=== PATIENT | female | born 1985 | race Caucasian/White ===

== ENCOUNTER 2018-02-20 09:26 | Day surgery (SDC) | payer BC, OTHER, SELFPAY ==
--- NOTE | 2018-02-20 09:26 | DT_ITS ---
This patient was seen during an EMR downtime February 17, 2018 - February 24, 2018. This patient may have a combination of paper and electronic documentation or all paper documentation. All documentation is viewable within the e-chart portion of [employer] for each patient visit.
--- NOTE | 2018-02-20 11:53 | POC_PTH ---
PATIENT: SIMRAN SHAH [place] [facility] [id number] AGE/SX: 33/F ROOM: RE02/20/[address]: Dr. Trinity Leone MD : 1985 BED: DIS: 02/20/2018 SPEC #: [id number] RECD: 02/20/18 12:20 STATUS: DAVID ANGELLA #: [id number] CARMEN: 02/20/18 11:[address]: Trinity Leone DEPT: SURGICAL PATHOLOGY RECD BY: Farhan Cooley ENTERED: 02/21/18 08:54 SP TYPE: PROD CONC OTHR DR: Dr. Donnie Smith MD Tissues: Product of conception, NOS Procedures: Surgery Specimen Level IV HEADER OPERATION: Suction D & C PRE-OP DIAGNOSIS: Missed TISSUE SUBMITTED: Products of conception MICROSCOPIC DIAGNOSIS Products of conception: Macerated male fetus. Weight ? 19.9 gm [place] to rump ? 9 cm [place] to heel ? 14 cm Autolysis of internal organs. Placenta: Placental disc ? 18.2 gm, immature placenta with focal calcifications. Membranes ? acute chorioamnionitis. Umbilical cord - three blood vessels. TEOFILO:lonnie 02/21/18 MICROSCOPIC DESCRIPTION Slides are reviewed. GROSS DESCRIPTION Received in fixative is one container labeled with the patient's name and designated products of conception. The specimen consists of a male macerated fetus and immature placenta. The fetus is received in two pieces with head from rest of the baby. The fetus measures nwnzo-zz-vrne 9 cm and vjcdc-xx-roqe 14 cm and weighs 14 gm. The placenta measures 5 x 5 x 1 cm and weighs 18.2 gm. The centrally attached umbilical cord measures 6 cm in length and 0.2 cm in diameter. Station Engineer Chief sections are submitted in four cassettes as follows: 1 ? tissue, thoracic and abdominal organs, 2-4 ? placenta (3 contain membranes and umbilical cord). Umbilical cord will be serially sectioned at the time of embedding. / TEOFILO:lonnie 02/20/18 TC:5 CPT: 59142 x2
[2018-02-23 12:38] LABS: Hematocrit 39.1 % (37-47); Hemoglobin 13.4 g/dl (12.0-15.0); Mean Corp Hgb Conc 34.3 g/gl (32-36); Mean Corpuscular Hgb 30.4 pg (27.0-32.0); Mean Corpuscular Volume 88.7 fL (81-99); Platelet Count 274 K/mm3 (150-450); RBC Distribution Width CV 12.7 % (11.6-14.6); RBC Distribution Width SD 40.3 fl (35.1-43.9); Red Blood Count 4.41 M/mm3 (4.2-5.4); White Blood Count 6.8 K/mm3 (4.4-11.0)
[2018-02-23 12:39] LABS: Mean Platelet Vol. 9.8 fl (6.2-12.0); Scan Indicated on CBC? Y/N NO
== END 2018-02-20 13:15 | disposition home or self-care (01) ==
LOC: SDC 09:30 → AC 09:31
PROVIDERS: Family Provider Family Medicine; PCP Family Medicine; Visit Provider Obstetrics & Gynecology
PROC: (CPT 59821; principal; 2018-02-20 10:50)
DX: O02.1 Missed abortion (principal); D64.9 Anemia, unspecified; F32.9 Major depressive disorder, single episode, unspecified; G43.909 Migraine, unspecified, not intractable, without status migrainosus; Z87.891 Personal history of nicotine dependence; Z79.899 Other long term (current) drug therapy
CPT/HCPCS: 01965; 59821; 36415; 85027; 86850; 86900; 88305; J7120

== ENCOUNTER 2018-12-31 05:00 | Inpatient (IN) | payer BC, SELFPAY ==
--- NOTE | 2018-12-26 11:41 | PCM.HP.BLA ---
History and Physical Date of Admission: 12/26/18 Adwoa Leary Physician PACKAGE DESIGNER H&P Signed Encounter Date: 12/26/2018 Expand All Collapse All Hide copied text Rj for details Gerardo Sanchez is a 33 year old female who presents for pre op for repeat cs scheduled at [facility] on 12/31/18. Pt denies TOLAC and declines BTo with c/s. Pt denies CP, SOB, dizziness or other concerns today. ? PAST?MEDICAL?HISTORY PAST MEDICAL HISTORY Diagnosis Date ? Anemia ? ? Back pain ? ? Complication of anesthesia ? ? multiple attemps at epidural ? Depression ? ? Migraine ? ? depression ? ? PAST?SURGICAL?HISTORY PAST SURGICAL HISTORY Procedure Laterality Date ? SECTION HX ? 06/06/2011 ? INSERTION OF IUD ? 10/13/2015 ? removed 07/2017 ? TONSILLECTOMY HX ? 1990 ? FAMILY?HISTORY FAMILY HISTORY Problem Relation Age of Onset ? Thyroid Father ? ? hyper ? Cancer Maternal Grandfather ? ? pituitary ? Cancer Maternal Grandmother ? ? lung-smoker ? Emphysema Maternal Grandmother ? ? smoker ? SOCIAL?HISTORY Social History Socioeconomic History Marital status: Spouse name: Jason Number of children: 1 Years of education: 12 Highest education level: Not on file Social Needs Financial resource strain: Not on file Food insecurity - worry: Not on file Food insecurity - inability: Not on file Transportation needs - medical: Not on file Transportation needs - non-medical: Not on file Occupational History Occupation: hvac technician residential Employer: [email or web address] Tobacco Use Smoking status: Former Smoker Years: 3.00 Quit date: 2007 Years since quittin.2 Smokeless tobacco: Never Used Substance and Sexual Activity Alcohol use: No Drug use: No Sexual activity: Yes Partners: Male Other Topics Concerns: Not on file Social History Narrative Not on file ? CURRENT?MEDICATIONS ? Current Outpatient Medications: CITRANATAL 90 DHA, ALGAL OIL, 90 mg iron-1 mg -50 mg-300 mg cmpk TAKE 1 TABLET AND 1 CAPSULE BY MOUTH DAILY cyclobenzaprine (FLEXERIL) 5 mg tablet Take 5 mg by mouth twice daily as needed. hydrOXYzine HCl (ATARAX) 50 mg tablet Take 50 mg by mouth at bedtime as needed. ? No current facility-administered medications for this visit. Allergies As of Date: 12/26/2018 (No Known Allergies) Fully Assessed 12/19/2018 ? ? REVIEW OF SYSTEMS Abdomen: No abdominal pain, nausea, vomiting, diarrhea, or constipation. Expanded ROS: GENERAL: Negative for fever Allergies and current medication updated:Yes ? EXAM: BP 110/64 Wt 221 lb (100.2kg) LMP 04/02/2018 ? GENERAL: pleasant, female in no apparent distress HEENT: Normocephalic, atraumatic, mucus membranes moist and no lesions NECK: Supple and full range of motion DERMATOLOGY: Normal, without lesions, non-icteric and non-hirsute CARDIAC: regular rate and rhythm CHEST: Clear to auscultation Normal inspiratory effort ABDOMEN: soft, non-tender- gravid PELVIC: deferred BIMANUAL: deferred NEURO: alert and oriented x3,exam grossly non-focal EXTREMITIES: normal ? ASSESSMENT AND PLAN: Encounter Diagnosis ? ? ICD-10-CM ? 1. Previous delivery, antepartum O34.219 URINE OB DIP B/O 2. 38 weeks gestation of Z3A.38 URINE OB DIP B/O ? 3. Pt has been counseled on risks/benefits and alternatives of surgery including but not limited to anesthesia, bleeding, infection, injury to pelvic structures including bowel, bladder, ureters and vessels. Pt wishes to proceed with surgery at this time. 4. Repeat cs reviewed along with pre op instructions. ? Adwoa Escobar MD ?
[2018-12-31] VITALS (20 sets, daily range): BP systolic 99–125; BP diastolic 50–77; PULSE 74–98; RESP 12–18; TEMP 36.2–36.8; O2SAT 95–99; BMI 35.5
[2018-12-31] MEDS: Lactated Ringers 1,000 ML 999 ML IV (05:10)
[2018-12-31 05:32] LABS: Absolute Lymphocyte Count 2.28 X10^3/ul (0.83-4.51); Absolute Neutrophil Count 6.9 X10^3/uL (2.0-7.7); Basophil# 0.01 X10^3/uL; Basophil% 0.1 % (0-1); Hematocrit 31.9 % (37-47); Hemoglobin 10.8 g/dl (12.0-15.0); Lymphocyte # 2.28 X10^3/ul (4.0); Lymphocyte % 22.2 % (19-41); Mean Corp Hgb Conc 33.9 g/gl (32-36); Mean Corpuscular Hgb 31.5 pg (27.0-32.0); Mean Platelet Vol. 10.4 fl (6.2-12.0); Monocyte# 0.88 X10^3/uL; Monocyte% 8.6 % (0-10); Neutrophil # 6.94 X10^3/uL (2.7-7.7); Neutrophil % 67.5 % (47-70); Platelet Count 249 K/mm3 (150-450); RBC Distribution Width CV 14.4 % (11.6-14.6); RBC Distribution Width SD 47.2 fl (35.1-43.9); Red Blood Count 3.43 M/mm3 (4.2-5.4); White Blood Count 10.3 K/mm3 (4.4-11.0)
[2018-12-31 05:34] LABS: POSITIVE COUNT NO; POSITIVE DIFFERENTIAL NO; POSITIVE MORPHOLOGY NO
[2018-12-31] MEDS: Lactated Ringers 1,000 ML 150 ML IV (06:38)
[2018-12-31] MEDS: Sodium Citrate/Citric Acid 30 ML UDC PO (06:57)
[2018-12-31] MEDS: Cefazolin 2 GM in 0.9% Normal Saline 100 ML IV (07:27)
[2018-12-31] MEDS: Oxytocin 30 units/NS 500 ml 30 UNITS/500 ML IV.SOLN 167 UNITS IV (07:50)
[2018-12-31] MEDS: Ketorolac 30 MG/ML Syringe IV ×3 (08:08→19:58)
--- NOTE | 2018-12-31 08:21 | OP.PCM_ITS ---
Report of Operation Date of Procedure: 12/31/18 Pre-Operative Diagnosis: term gestation, elective repeat cs Post-Operative Diagnosis: same, live male Surgery/Procedure Performed:: Repeat cs Description of Surgical Findings:: Normal tubes and ovaries corrections unit supervisor: Aida Lewis Type of Anesthesia:: Spinal Specimen's removed: placenta Drains: bills Estimated Blood Loss (mL): 900 Grafts/Implants Used: none - Complications none - Admit VTE Documentation VTE Present on Admission: Yes VTE Mechan Device Prophylaxis: SCD's VTE Pharm Prophylaxis ordered?: Yes Delivery Classification: Scheduled Final CARMEN: 01/07/19 Final CARMEN Source: LMP Gestational age: 39 Weeks and 0 Days Indications for : Repeat Elective Description of Procedure: Operative note: After informed consent was obtained the patient was taken to the operating room she was given spinal anesthesia. He was placed in the supine position. She was then prepped and draped in normal sterile fashion. Once spinal anesthesia was found to be adequate skin incision was made with a scalpel in a Pfannenstiel fashion. It was carried down to the underlying layer of the fascia. Fascia was then incised midline with scapel and extended laterally using curved holland. 2 straight Xiomara's were placed in the superior aspect of the fascial edge and the rectus muscles were dissected off Sharply. Attention was then turned to the inferior aspect where again the fascial edge was grasped with 2 straight [place] clamps tented up and the rectus muscle dissected off sharply. Rectus muscles already seperated- Using blunt force the peritoneum was then entered. Gentle opposing traction placed to extend incision. Metzenbaum scissors were used to create a bladder flap and then taken down digitally. Uterine incision was made in a low transverse fashion with the scalpel and then entered bluntly. Gentle opposing traction was placed to extend the uterine incision. The membranes were ruptured amniotic fluid clear. 's head was then brought to the uterine incision was delivered atraumatically followed by the rest infant's body. At this time delayed cord clamping was performed mouth nose were suctioned. Infant was then handed to the waiting nursery team. The placenta was then removed with gentle traction. The uterus was removed from the intra-abdominal cavity is wrapped in a moist lap. He was cleared of all clots and debris using a moist lap. Ring clamps were placed on the uterine angles. #1 Vicryl suture was used in a running locked fashion for the first layer. Followed by second imbricating layer with #1 Vicryl. At this time then the uterus was placed back into abdominal cavity uterine incision was evaluated and noted to be of good hemostasis. Tubes and ovaries were evaluated they were normal. the uterine incision was again evaluated good hemostasis was appreciated Alisa placed. The peritoneum was grasped with Kellys. Peritoneum was reapproximated using #2 Vicryl suture in a running fashion- alisa placed over rectus muschle. The fascia was then reapproximated using #1 Vicryl in a running fashion. Subcutaneous layer was evaluated and Bovie was used for any small oozing that was noted per #2-0 plain gut suture was then used to reapproximate the subcutaneous layer 4-0 Vicryl on a Ian needle was used to reapproximate the skin in a subcutaneous fashion. Dry sterile dressing was applied. Instrument lap needle count were correct ?2. Anticipated normal postoperative course for this patient. Amniotic Fluid Description: Clear Placenta Disposition: [facility] Drain: Bills to straight drain Cord Entanglement: None Cord Vessel Description: 3 Vessels Gender: Male (1 minute): 8 (5 minute): 9 Delayed cord clamping: Yes Pre-op Antibiotic Given: Ancef 2 grams IV x1 Pt instructed on risks of surgery: Bleeding, Anesthesia Risks, Infection, Need for Future C-Sections, Injury to surrounding structure(s) including bowel and bladder Complications: None - Admit VTE Documentation VTE Present on Admission: Yes VTE Mechan Device Prophylaxis: SCD's VTE Pharm Prophylaxis ordered?: Yes
[2018-12-31] MEDS: 0.9% Saline Lock 10 ML Syringe IV ×2 (18:49→19:58)
--- NOTE | 2018-12-31 20:30 | DCINST_ITS ---
Discharge Diet: No Restrictions Discharge Activity: Return to Normal Activity, May Not Drive - for 2 weeks, May not drive while taking narcotic pain medications., May Shower, May Take a Tub Bath - in 7 days. May resume sexual activity in: 4-6 weeks Lifting Restrictions: 20 pounds Additional Activity Instructions:: Nothing in the vagina for 4-6 weeks. You may return to work/school in 6 weeks. Call your doctor if your incision/area has: Continuous Slow Oozing, Sudden Increased Bleeding, Increased Pain/ Swelling, Increased Redness, Foul Smelling Discharge Call your doctor if you observe: Fever of 101 or Higher, Using more than one pad per hour - for 2 hours Suture Line Care: Avoid Pulling/Pushing, Avoid Pinching/Bending Cleanse incision/area with: Keep Dressing Clean & Dry Additional Instructions: If you experience any of the following, contact your healthcare provider. * Bleeding that soaks a pad every hour for 2 hours * Fever 100.4 or higher * Unrelieved incision or abdominal pain * Swelling, redness, discharge or bleeding from your incision or episiotomy site * Your incision begins to separate * Problems urinating (including inability to urinate or burning while urinating). * Visual changes * Severe headache * Flu-like symptoms * Pain or redness in one of both of your breasts * Pain, warmth, tenderness or swelling in your legs, especially the calf area * Frequent nausea and vomiting * Symptoms of depression or anxiety If you experience any of the following, call 911 or go to the nearest Emergency Room. * Chest pain * Problems breathing * Seizure activity * Partial or complete paralysis of a body part, slurred speech, weakness or drooping of the face, or a sudden inability to walk or hold your balance Allergies/Adverse Reactions: Allergies No Known Allergies Allergy (Verified 12/31/18 05:18) Medications to take at Discharge Citranatal Dha 90 tab PO DAILY 12/31/18 Ibuprofen [Motrin] 600 mg PO Q6H PRN PRN #60 tablet 12/31/18 Oxycodone HCl/Acetaminophen [Percocet 5/325] 1 tablet PO Q4H PRN PRN 7 Days #20 tablet 12/31/18 Senna/Docusate Sodium [Senokot-S] 1 - 2 tab PO DAILY PRN #30 tablet 12/31/18 SimETHICONE [Mylicon] 80 mg PO PCHS PRN #30 tablet 12/31/18 The following prescriptions were given: Oxycodone HCl/Acetaminophen [Percocet 5/325] 1 tablet PO Q4H PRN PRN 7 Days #20 tablet PRN Reason: Pain Ibuprofen [Motrin] 600 mg PO Q6H PRN PRN #60 tablet PRN Reason: Mild Pain (-11/23) Senna/Docusate Sodium [Senokot-S] 1 - 2 tab PO DAILY PRN #30 tablet PRN Reason: Constipation SimETHICONE [Mylicon] 80 mg PO PCHS PRN #30 tablet PRN Reason: Indigestion/stomach pain Follow-Up: Call to make an appointment with your doctor for an incision check in 1-2 weeks. You will also need a 6 week post- follow up appointment. Test results from this visit will be discussed in further detail at your follow- up appointment, if applicable. Please Follow Up With: Adwoa Escobar MD - Call to make an appointment for an incision check in 1-2 [phone] When: You will need a post- check in 6 weeks. Primary Care Physician: Donnie Smith MD [Primary Care Provider] -
[2019-01-01] VITALS (8 sets, daily range): BP systolic 96–115; BP diastolic 51–69; PULSE 70–90; RESP 15–19; TEMP 36.4–36.9; O2SAT 93–96
[2019-01-01] MEDS: Ketorolac 30 MG/ML Syringe IV ×4 (02:06→20:08)
[2019-01-01] MEDS: 0.9% Saline Lock 10 ML Syringe IV ×2 (02:06→20:08)
[2019-01-01] MEDS: Acetaminophen 500 MG Tablet 1000 MG PO ×2 (05:46→18:42)
[2019-01-01] MEDS: Senna/Docusate Sodium 1 Tablet PO (05:46)
[2019-01-01] MEDS: Enoxaparin 40 MG/0.4 ML Syringe SC (06:18)
[2019-01-01 07:07] LABS: Hematocrit 29.4 % (37-47); Mean Corpuscular Hgb 31.5 pg (27.0-32.0); Mean Corpuscular Volume 92.7 fL (81-99); Mean Platelet Vol. 10.1 fl (6.2-12.0); Platelet Count 224 K/mm3 (150-450); RBC Distribution Width CV 14.4 % (11.6-14.6); RBC Distribution Width SD 48.9 fl (35.1-43.9); Red Blood Count 3.17 M/mm3 (4.2-5.4); White Blood Count 11.5 K/mm3 (4.4-11.0)
[2019-01-01 07:11] LABS: Scan Indicated on CBC? Y/N NO
--- NOTE | 2019-01-01 07:24 | PCM.PN.OB ---
Subjective: pt seen at bedside, doing well. pt reports good pain control. lochia mild. voiding w/o difficulty. Breast feeding. denies CP, SOB, dizziness. - Physical Exam General: Alert, Oriented x3 Abdomen: Soft, Non-Distended, - - fundus firm. incision dressing dry and intact Extremities: No Calf Tenderness Vital Signs Temp Pulse Resp BP Pulse Ox 97.6 F L 85 18 104/63 96 01/01/19 04:00 01/01/19 06:26 01/01/19 06:26 01/01/19 04:00 01/01/19 06:26 Oxygen Delivery Method Room Air Weight: 99.79 kg Body Mass Index (BMI) 35.5 Intake and Output for Last 24 Hours 12/30/18 12/31/18 01/01/19 23:59 23:59 23:59 Intake Total 3002 / 3002 Output Total 1900 / 1900 1000 / 1000 Balance 1102 / 1102 -1000 / -1000 Laboratory Tests Past 24 Hrs 01/01/19 06:25 WBC 11.5 H RBC 3.17 L Hgb 10.0 L Hct 29.4 L MCV 92.7 MCH 31.5 MCHC 34.0 RDW 14.4 RDW Differential 48.9 H Plt Count 224 MPV 10.1 Medical Necessity - Tobacco Use Smoking Status: Former smoker Assessment/Plan POD#1, doing well routine care pain mgmt ambulation
--- NOTE | 2019-01-01 17:00 | NURSING ---
report received from Danita BUTTS and taking over care at this time.
[2019-01-02] MEDS: 0.9% Saline Lock 10 ML Syringe IV (01:35)
[2019-01-02] MEDS: Ketorolac 30 MG/ML Syringe IV (01:36)
[2019-01-02 01:41] VITALS: BP 116/60; PULSE 79; RESP 15; TEMP 36.8; O2SAT 95
[2019-01-02] MEDS: Senna/Docusate Sodium 1 Tablet PO (04:38)
[2019-01-02] MEDS: Acetaminophen 500 MG Tablet 1000 MG PO (04:38)
[2019-01-02] MEDS: Enoxaparin 40 MG/0.4 ML Syringe SC (05:59)
--- NOTE | 2019-01-02 08:38 | PCM.PN.OB ---
Subjective: Pt doing well. Ambulating and voiding without difficulty. Tolerating reg diet. Passing flatus. is going well. Denies lightheadedness, dizziness, CP, SOB, leg pain. Lochia normal. Pain controlled. She desires to go home today. - Physical Exam General: Alert, No apparent distress HEENT: Atraumatic Lungs: - - No increased resp effort Abdomen: Soft, Non Tender, - - FF@U-1 Extremities: No Calf Tenderness Skin: No rashes Neurological: Neuro grossly intact Psych/Mental Status: Normal Affect, Appropriate Vital Signs Temp Pulse Resp BP Pulse Ox 98.2 F 79 15 116/60 95 01/02/19 01:41 01/02/19 01:41 01/02/19 01:41 01/02/19 01:41 01/02/19 01:41 Oxygen Delivery Method Room Air Weight: 220 lb Body Mass Index (BMI) 35.5 Intake and Output for Last 24 Hours 12/31/18 01/01/19 01/02/19 23:59 23:59 23:59 Intake Total 3002 / 3002 Output Total 1900 / 1900 1000 / 1000 Balance 1102 / 1102 -984 / -984 Medical Necessity - Tobacco Use Smoking Status: Former smoker Assessment/Plan POD#2 - - Planning for [place] - AF, VSS - Meeting all milestones for discharge - Dispo: Pt desires to go home today. Reviewed discharge instructions and follow up in the office
[2019-01-02] MEDS: Ibuprofen 600 MG Tablet PO (09:09)
[2019-01-02 09:31] VITALS: BP 105/56; PULSE 86; RESP 16; TEMP 36.6
--- NOTE | 2019-01-02 10:40 | CASEMGMT ---
Social Work Brief Assessment - Labor and Delivery Unit Refer documentation below for further details. Date of Referral/Notification: 01/01/19 Reason for Referral: HX OF DEPRESSION Date of Intervention: 01/02/19 Time of Intervention: 10:40A Informant: Medical record and mother of baby (MOB) History: MOB WITH HX OF DEPRESSION AND STATES WAS PRESCRIBED [place]MB[place]. MOB REPORTS STOPPED ANTI DEPRESSANT WHEN FOUND OUT SHE WAS . MOB DENIES ANY PREVIOUS COUNSELING SERVICES. Assessment: MET WITH MOB AND FOB IN ROOM. FOB HOLDING BABYMARTA. INTRODUCED ROLE AND REASON FOR REFERRAL. MOB ADMITS TO HX OF DEPRESSION AND STATES WAS TREATED WITH MEDICATION. MOB STATES WILL BE DISCUSSING NEEDS FOR MEDICATION WITH PHYSICIAN. EDUCATION ON PPD REVIEWED AND RESOURCES PROVIDED TO MOB. MOB DENIES ANY ISSUES OR CONCERNS. MOB AND FOB READY FOR DISCHARGE. NURSING TO REVIEW D/C. Plan: HOME WITH FAMILY. RESOURCES PROVIDED ON PPD. No further needs requested or indicated. -Elisabeth Abarca, INFORMATICS COORDINATOR, BROTH MIXER
== END 2019-01-02 11:00 | disposition home or self-care (01) | DRG 788 ==
PROVIDERS: Admitting Provider Obstetrics & Gynecology; Family Provider Family Medicine; PCP Family Medicine; Referring Provider Obstetrics & Gynecology; Visit Provider Obstetrics & Gynecology
PROC: 10D00Z1 Extraction of Products of Conception, Low, Open Approach (ICD-10-PCS; CPT 59514; principal; 2018-12-31 07:15)
DX: O34.211 Maternal care for low transverse scar from previous cesarean delivery (principal); N85.8 Other specified noninflammatory disorders of uterus; Z3A.39 39 weeks gestation of pregnancy; Z37.0 Single live birth; Z87.891 Personal history of nicotine dependence
CPT/HCPCS: 85025; 85027; 86850; 86900; 99218; J7120; A4216; G0378; J2405

== ENCOUNTER 2022-08-03 10:36 | Outpatient (CLI) | payer BC, SELFPAY ==
[2022-08-03 12:47] LABS: Anion Gap 6 (5-15); BUN 11 mg/dL (7-18); BUN/Creat Ratio 19.3 RATIO (10-20); Chloride 104 mmol/L (98-107); Cholesterol 179 mg/dL (200); Creatinine, Serum 0.57 mg/dL (0.55-1.02); EST Glomerular Filtration Rate 126 mL/min (>60); Est Glom Filt Rate - Afr Amer 153 mL/min (>60); Glucose 89 mg/dL (74-106); High Density Lipoprotein 81 mg/dL; Potassium 3.8 mmol/L (3.5-5.1); Sodium Level 137 mmol/L (136-145); Triglycerides 60 mg/dL; Very Low Density Lipoprotein 12 mg/dL (5-40)
== END 2022-08-03 23:59 | disposition home or self-care (01) ==
LOC: MTLAB 10:38
PROVIDERS: PCP Family Medicine; Referring Provider Family Medicine; Visit Provider Family Medicine
DX: Z00.00 Encounter for general adult medical examination without abnormal findings (principal)
CPT/HCPCS: 36415; 80048; 80061; 82306

== ENCOUNTER → 2023-06-21 | Outpatient (CLI) | payer BC, SELFPAY ==
--- NOTE | 2023-06-21 14:49 | RAD_ITS ---
STUDY: X-RAY - LEFT WRIST REASON FOR EXAM: Female, 38 years old. Wrist pain. TECHNIQUE: 3 views of the left wrist were obtained. COMPARISON: None. FINDINGS: Normal visualized distal radius and ulna. Normal radiocarpal articulation. Normal distal radioulnar articulation. Normal carpal bones. Normal carpal articulations. Normal carpometacarpal articulation of the thumb. Normal second through fifth carpometacarpal articulations. Normal visualized metacarpal bones. The soft tissue structures are unremarkable. There is no demonstrated acute fracture. RAD/Wrist min 3 Views IMPRESSION: Normal x-ray examination of the left wrist. Electronically Signed: Jonas Boles MD at 9:55 EDT ,
--- NOTE | 2023-06-21 14:49 | RAD_ITS ---
INDICATION: THUMB PAIN EXAMINATION/TECHNIQUE: X-RAY - LEFT HAND XR Fingers Min 2 Views COMPARISON: None. FINDINGS: No acute fracture or malalignment. No blastic or lytic lesions. No degenerative changes are seen. The soft tissues are unremarkable. RAD/Finger(s) Min 2 Views IMPRESSION: No acute radiographic abnormalities. Electronically Signed: Gary Britton MD at 21:49 EDT ,
== END | disposition home or self-care (01) ==
PROVIDERS: PCP Family Medicine; Referring Provider Family Medicine; Visit Provider Family Medicine
DX: M79.645 Pain in left finger(s) (principal); M25.539 Pain in unspecified wrist
CPT/HCPCS: 73110; 73140